=== PATIENT | female | born 1955 | race Two or more races ===

== ENCOUNTER 2020-07-05 07:34 | Emergency (ER) | payer MEDICAID ==
[~2020-07-05] VITALS: Ht 154.9 cm; Wt 60.8 kg
[2020-07-05 07:47] VITALS: BP 153/80
[2020-07-05] MEDS ORDERED: KETOROLAC TROMETHAMINE 15 MG/ML VIAL ONE (08:22)
[2020-07-05] MEDS ORDERED: IBUP-1955 PO (08:22)
[2020-07-05] MEDS ORDERED: KETOROLAC TROMETHAMINE INJ 30 MG/ML VIAL IM ONE (08:30)
--- NOTE | 2020-07-05 08:40 | NUR ---
PATIENT A/OX4, AMBULATORY WITH STEADY GAIT. NO DISTRESS NOTED. Patient discharged to home in stable condition. Written and verbal after care instructions given. Patient verbalizes understanding of instruction.
== END 2020-07-05 08:40 | disposition home or self-care (01) ==
LOC: ER 07:40
DX: M79.18 Myalgia, other site (principal); R53.83 Other fatigue; I10 Essential (primary) hypertension; E78.5 Hyperlipidemia, unspecified; Z86.16 Personal history of COVID-19; W18.39XA Other fall on same level, initial encounter; Y93.89 Activity, other specified; Y92.89 Other specified places as the place of occurrence of the external cause; Y99.8 Other external cause status
CPT/HCPCS: 96372; 99283; J1885